=== PATIENT | male | born 1955 | race Caucasian/White ===

== ENCOUNTER 2025-05-10 15:37 | Outpatient (CLI) | payer MEDICARE, SELFPAY ==
--- NOTE | ~2025-05-10 | US_ITS ---
EXAMINATION: US carotid duplex BI DATE: 05/10/2025 16:36 INDICATION: Carotid bruit TECHNIQUE: Grayscale, color Doppler, and pulsed Doppler images of the cervical carotid arteries were obtained. The degree of vessel stenosis is placed in one of the following categories: normal, <50%, 50-69%, >=70% but less than near- occlusion, near-occlusion, or total occlusion. Note that percent stenosis relative to normal distal artery lumen diameter is indirectly measured from velocity measurements as described by Salvatore, et al. Radiology 2003; 229:340-346. Notes: Normal: Peak systolic velocity <125 centimeters/sec and no plaque <50%. Peak systolic velocity <125 (EDV <40; ICA/CCA PSV ratio <2.0; used these factors only a tandem lesions or low cardiac output or contralateral disease) 50-69 %: PSV 125-230 (EDV 40-100; ratio 2-4) >= 70% but less than near occlusion: PSV greater than 230 (EDV > 100; ratio> 4.0) Near Occlusion: PSV that is variable; markedly narrowed lumen Occlusion: Absent flow on color/spectral Doppler and no lumen on archer scale. COMPARISON: No prior studies for comparison. FINDINGS: RIGHT: The right common carotid artery (CCA) peak systolic velocity (PSV) is 96 cm/s. The right internal carotid artery (ICA) PSV is 85 cm/s. The right ICA end- diastolic velocity (EDV) is 25 cm/s. The right ICA/CCA PSV ratio is 1.0. The external carotid artery (ECA) PSV is 113 cm/s. There is antegrade flow in the right vertebral artery. LEFT: The left CCA PSV is 81 cm/s. The left ICA PSV is 93 cm/s. The left ICA EDV is 30 cm/s. The left ICA/CCA PSV ratio is 1.1. The ECA PSV is 116 cm/s. There is antegrade flow in the left vertebral artery. IMPRESSION: 1. Less than 50% stenosis in the right internal carotid artery by sonographic criteria. 2. Less than 50% stenosis in the left internal carotid artery by sonographic criteria. Reviewed, dictated and finalized at location I. CTOR LEARNING IMPRESSION: 1. Less than 50% stenosis in the right internal carotid artery by sonographic catracho prather. 2. Less than 50% stenosis in the left internal carotid artery by sonographic christopher higgins.
--- OUTSIDE RECORDS SUMMARY | 2025-05-10 15:54 | XMS_ITS | Clinical Summary ---
Author Organization [facility] Address [address] [place] [address] Care Team Providers Care Manual Arts Teacher Name Role Phone Asad Scherer MD [facility] Source Comments [facility],non-owned Affiliates and Associated Physician Practices is amultiple site organization consisting of ambulatory clinics and hospital sitesin [place], [place], [place] and [place]. This disclosure is being madepursuant to the Care Everywhere program and may not contain all information available regarding this patient. Last updated 18.[facility] Allergies No known active allergies Medications * Be aware that medications may not be up to date on this document. Alwaysverify current medications with the patient. lisinopril (Prinivil; Zestril) 40 MG tablet Take 1 (one) tablet by mouth once daily 100 tablet 2 06/22/2022 Active rosuvastatin (Crestor) 20 MG tablet Take 1 (one) tablet by mouth once daily 100 tablet 3 06/22/2022 Active cloNIDine (Catapres) 0.1 MG tablet Take 1 (one) tablet by mouth at bedtime 90 tablet 09/27/2022 Active amLODIPine (Norvasc) 10 MG tablet TAKE 1 TABLET BY MOUTH ONCE DAILY 100 tablet 02/25/2023 Active Active Problems Problem Noted Date Diagnosed Date ED (erectile dysfunction) 06/15/2010 Essential hypertension, benign 12/05/2009 Malaise and fatigue 07/03/2009 Hypercholesterolemia 08/05/2008 Hyperlipidemia 08/05/2008 Screening for condition 08/05/2008 Overview (03/06/2015): Adult Abstraction Problem List Screening Colonoscopy: Result: Not avail in chart Date: PSA: Result: Not avail in chart Date: 07-25-2007 0.7 Resolved Problems Problem Noted Date Diagnosed Date Resolved Date Hypertension 08/05/2008 07/02/2009 Immunizations Immunization Administration Dates Next Due INFLUENZA VACCINE, ADJUVANTE D, QUADR. (FLUAD QUADRIVALENT; 65Y+) (AIIV4) 06/01/2022,04/27/2021 INFLUENZA VACCINE, HIGH-DOSE , QUADR. (FLUZONE HIGH-DOSE QUADRIVALENT; 65Y+), 0.7 ML (HD-IIV4) 04/02/2020 PNEUMOCOCCAL PCV20 CONJ VAC IM 06/01/2022 PNEUMOCOCCAL PPSV23 04/02/2020 TDAP (7yrs+) 01/06/2016 Family History Medical History Relation Name Comments Cancer Father Cancer Mother Relation Name Status Comments Father CANCER Mother CANCER Social History Tobacco Use Types Packs/Day Years Used Date Smoking Tobacco: Never Smokeless Tobacco: Never Tobacco Cessation:Counseling Given: Not Answered Alcohol Use Standard Drinks/Week Comments Yes 0 (1 standard drink = 0.6 oz pur e alcohol) Beer PHQ-2 Answer Date Recorded PHQ2 TOTAL SCORE 0 11/24/2021 Sex and Gender Information Value Date Recorded Sex Assigned at Not on file Legal Sex Male 1:33 PM HEALTHCARE ANALYST Gender Identity Not on file Sexual Orientation Not on file 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 Not on file Not on file Last Filed Vital Signs Vital Sign Reading Time Taken Comments Blood Pressure 164/88 06/01/2022 10:34 AM HEALTHCARE ANALYST Pulse 64 06/01/2022 10:34 AM HEALTHCARE ANALYST Temperature 36.8 C (98.2 F) 06/01/2022 10:34 AM HEALTHCARE ANALYST Respiratory Rate 14 06/01/2022 10:34 AM HEALTHCARE ANALYST Oxygen Saturation 99% 06/01/2022 10:34 AM HEALTHCARE ANALYST Inhaled Oxygen Concentration - - Weight 107 kg (236 lb) 06/01/2022 10:34 AM HEALTHCARE ANALYST Height 185.4 cm (6' 0.99) 06/01/2022 10:[address] Body Mass Index 31.14 06/01/2022 10:34 AM HEALTHCARE ANALYST Plan of Treatment Health Maintenance Due Date Last Done Comments COLOGUARD (AGES 45-75) - COLON CA SCREENING 1955 CT COLONOGRAPHY - COLON CA SCREENING 1955 FIT - COLON CA SCREENING 1955 FLEX SIG - COLON CA SCREENING 1955 Respiratory Syncytial Virus (RSV) Vaccine Pt: or over 60 yrs (1 - Risk 50-74 years 1-dose series) 2003 ZOSTER VACCINE (1 of 2) 2003 DEPRESSION SCREENING 06/06/2024 11/24/2021 MEDICARE AWV CALENDAR YEAR 2024 11/24/2021, 06/02/2021, 04/02/2020 COVID-19 VACCINE ( - season) 2025 04/27/2021, 08/24/2020, 08/03/2020 INFLUENZA VACCINE (#1) 2025 2, 04/27/2021, 04/02/2020 SCREENING FOR DIABETES 06/01/2025 2, 06/01/2022, 11/24/2021, Additional history exists DTAP/TDAP/TD VACCINES (2 - Td or Tdap) 01/05/2026 01/06/2016 COLON MONITORING 03/28/2028 03/28/2018, 03/28/2018 COLONOSCOPY - COLON CA SCREENING 03/28/2028 03/28/2018, 03/28/2018, 02/28/2004 (Previously completed) Colorectal Cancer Screening 03/28/2028 HEPATITIS C SCREENING Completed 05/20/2017 PNEUMOCOCCAL VACCINE 50+ Completed 06/01/2022, 03/07 HEPATITIS B VACCINE Aged Out No longe r eligible based on patient's age to complete this topic HIB VACCINE Aged Out No longer eligi ble based on patient's age to complete this topic HPV VACCINE Aged Out No longer eligi ble based on patient's age to complete this topic MENINGOCOCCAL (Group B) VACCINE SHARED DECISION-MAKING Aged Out No longer eligible based on patient's age to complete this topic MENINGOCOCCAL GROUPS A/C/Y/W VACCINE Aged Out No longer eligible based on patient's age to complete this topic Goals Goal Patient Goal Type Associated Problems Recent Progress Patient-Stated? Author Blood Pressure < 140/90 Blood Pressure 164/88( 022 10:34 AM HEALTHCARE ANALYST) Karuna Crooks MA Procedures Procedure Name Priority Date/Time Associated Diagnosis Comments HEMOGLOBIN A1C Routine 06/01/2022 11:27 AM HEALTHCARE ANALYST Essential hypertension, benign Mixed hyperlipidemia Hypercholesterolemi a Malaise and fatigue ENDOSCOPY, COLON, SCREENING Routine 03/28/2018 9:16 AM CDT HEPATITIS C AB W RFLX VERIFICATION 05/20/2017 8:54 AM HEALTHCARE ANALYST from Last 3 Months or Most Recently Relevant to Health Maintenance Results * HEMOGLOBIN A1C (06/01/2022 11:27 AM HEALTHCARE ANALYST) Hemoglobin A1c 5.3 <5.7 % [facility] ACCOUNT BILL Comment: AVERAGE GLUCOSE MG/DL BLOOD 105 mg/dL HbA1c Interpretation: Normal: < 5.7% Pre-diabetes: 5.7-6.4% Diabetes: Equal to or greater than 6.5% Test results diagnostic of diabetes should be repeated for c onfirmation. Treatment target values recommended by ADA and other clinica l organizations should be used to evaluate metabolic control in patients. This test should not replace glucose testing for patients wi th Type 1 diabetes, pediatric patients, or women. Falsely low HbA The [place] Certified Registered Nurse Practitioner assay for the measurement of HbA1c is a National Glycohemoglobin Standardization Program (NGSP) certified method. FASTING Blood BLOOD SPECIMEN / Unknown 06/01/2022 11:27 AM HEALTHCARE ANALYST 06/01/2022 Narrative Resulting Agency Comment Lab Testing performed at: [facility] [address] [place] [phone] us Shawn Collins DO LAB - CHEMISTRY ORDERABL ES Final Result [facility] ACCOUNT BILL [address] [place] [address] * ENDOSCOPY, COLON, SCREENING (03/28/2018 9:16 AM CDT) Report Endoscopy POC _ Patient Name: Jonas Ahumada Procedure Date: 03/28/2018 9:16 AM Date of : 1955 Admit Type: Outpatient Age: 62 Gender: Male Attending MD: Vishnu Bates DO _ Procedure: Colonoscopy Indications: Screening for colorectal malignant neoplasm, Last colonoscopy: 2003 Providers: Vishnu Bates DO (Doctor) Referring MD: Shawn Collins DO (Referring MD) Medicines: See the Anesthesia note for documentation of the administered medications Complications: No immediate complications. _ Procedure: Pre-Anesthesia Assessment: - ASA Grade Assessment: II - A patient with mild systemic disease. After I obtained informed consent, the scope was passed under direct vision. Throughout the procedure, the patient's blood pressure, pulse, and oxygen saturations were monitored continuously. The Colonoscope was introduced through the anus and advanced to the cecum, identified by the appendiceal orifice, IC valve and transillumination . The colonoscopy was performed without difficulty. The patient tolerated the procedure well. The quality of the bowel preparation was good. Findings: The perianal and digital rectal examinations were normal. Non-bleeding internal hemorrhoids were found during retroflexion. The hemorrhoids were small. The exam was otherwise without abnormality. _ Impression: - Non-bleeding internal hemorrhoids. - The examination was otherwise normal. - No specimens collected. Recommendation: - Discharge patient to home. - Await pathology results. - Return to primary care physician as previously scheduled. - The findings and recommendations were discussed with the patient. - Repeat colonoscopy in 10 years for surveillance. Procedure Code(s): --- Professional --- 85903, Colonoscopy, flexible; diagnostic, including collection of specimen(s) by brushing or washing, when performed (separate procedure) --- Technical --- 13810, Colonoscopy, flexible; diagnostic, including collection of specimen(s) by brushing or washing, when performed (separate procedure) Diagnosis Code(s): --- Professional --- Z12.11, Encounter for screening for malignant neoplasm of colon K64.8, Other hemorrhoids --- Technical --- Z12.11, Encounter for screening for malignant neoplasm of colon K64.8, Other hemorrhoids CPT copyright 2015 [employer]. All rights reserved. The codes documented in this report are preliminary and upon launch check out review may be revised to meet current compliance requirements. ___ Vishnu Bates DO 03/28/2018 10:15:59 AM This report has been signed electronically. Number of Addenda: 0 Note Initiated On: 03/28/2018 9:16 AM [facility] ENDOSCOPY 03/28/2018 9:16 AM CDT us Vishnu Bates DO GI PROCEDURE ORDERABLES Ed ited Result - Final [facility] [place] [address] * HEPATITIS C AB W RFLX VERIFICATION (05/20/2017 8:54 AM HEALTHCARE ANALYST) Hepatitis C Antibody 0.1 0.0 - 0.9 s/co ratio [facility] ACCOUNT BILL 05/20/2017 8:54 AM HEALTHCARE ANALYST 05/20/2017 Narrative Resulting Agency Comment [facility] [address] [facility] [phone] Shawn Collins DO LAB - CHEMISTRY ORDERABL ES Final Result [facility] ACCOUNT BILL [address] [place] [address] from Last 3 Months or Most Recently Relevant to Health Maintenance Insurance [facility] MANAGED MEDICARE ADV Care Teams Manual Arts Teacher Relationship Specialty Start Date End Date Asad Scherer MD Orthopedic Surgery 10/03/17
--- OUTSIDE RECORDS SUMMARY | 2025-05-10 15:55 | XMS_ITS | Encounter Summary ---
Author Organization [facility] Health Address [facility] [place] [address] Care Team Providers Care Disc Pad Plate Filler Name Role Phone Shawn Collins DO Primary Care Provider + Asad Scherer MD Unavailable Shawn Collins DO Unavailable [phone] Encounter Details Date Type Department Care Team (Late st Contact Info) Description 09/13/2014 [facility] Visit EXTERNAL [facility] DEPT Shawn Collins DO [address] [place] [address] Social History Tobacco Use Types Packs/Day Years Used Date Smoking Tobacco: Never Smokeless Tobacco: Never Alcohol Use Standard Drinks/Week Comments Yes 0 (1 standard drink = 0.6 oz pur e alcohol) Beer Sex and Gender Information Value Date Recorded Sex Assigned at Not on file Legal Sex Male 1:33 PM X RAY EQUIPMENT SERVICER Gender Identity Not on file Sexual Orientation Not on file 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 Author Blood Pressure < 140/90 Blood Pressure 164/88( 022 10:34 AM X RAY EQUIPMENT SERVICER) No Karuna Stevenson MA documented as of this encounter Visit Diagnoses Not on filedocumented in this encounter Care Teams Disc Pad Plate Filler Relationship Specialty Start Date End Date Shawn Collins DO PCP - General 11/09/11 12/30/22 Shawn Collins DO [address] [place] [address] PCP - Attributed-[facility] 07/14/18 Asad Scherer MD Orthopedic Surgery 10/03/17 documented as of this encounter
--- OUTSIDE RECORDS SUMMARY | 2025-05-10 15:55 | XMS_ITS | Encounter Summary ---
Author Organization [facility] Health Address [facility] [place] [address] Care Team Providers Care Civil Attorney Name Role Phone Shawn Collins DO Primary Care Provider + Asad Scherer MD Unavailable Shawn Collins DO Unavailable [phone] Encounter Details Date Type Department Care Team (Late st Contact Info) Description 08/07/2013 [facility] Shawn Collins DO [address] [place] [address] Social History Tobacco Use Types Packs/Day Years Used Date Smoking Tobacco: Never Smokeless Tobacco: Never Alcohol Use Standard Drinks/Week Comments Yes 0 (1 standard drink = 0.6 oz pur e alcohol) Beer Sex and Gender Information Value Date Recorded Sex Assigned at Not on file Legal Sex Male 1:33 PM [facility] ATTENDANT Gender Identity Not on file Sexual Orientation Not on file 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
--- OUTSIDE RECORDS SUMMARY | 2025-05-10 15:55 | XMS_ITS | Encounter Summary ---
Author Organization [facility] Address [facility] [facility] [place] [address] Care Team Providers Care Clinical Educator Name Role Phone Asad Scherer MD Unavailable Encounter Details Date Type Department Care Team (Late st Contact Info) Description 09/20/2024 Lab Requisition [facility] - DermPath Lab [address] [place] [phone] Nii Cheney MD [facility] DERMATOLOGY [address] [place] [phone] Basal cell carcinoma of skin of left upper limb, including shoulder Social History Tobacco Use Types Packs/Day Years Used Date Smoking Tobacco: Never Smokeless Tobacco: Never Alcohol Use Standard Drinks/Week Comments Yes 0 (1 standard drink = 0.6 oz pur e alcohol) Beer PHQ-2 Answer Date Recorded PHQ2 TOTAL SCORE 0 11/24/2021 Sex and Gender Information Value Date Recorded Sex Assigned at Not on file Legal Sex Male 1:33 PM PHYSICAL THERAPY MANAGER Gender Identity Not on file Sexual Orientation Not on file 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 Author Blood Pressure < 140/90 Blood Pressure 164/88( 022 10:34 AM PHYSICAL THERAPY MANAGER) No Karuna Stevenson MA documented as of this encounter Procedures Procedure Name Priority Date/Time Associated Diagnosis Comments DERMATOPATHOLOGY Routine 09/20/2024 3:33 AM CDT Basal cell carcinoma of skin of left upper limb, including shoulder documented in this encounter Results * DERMATOPATHOLOGY (09/20/2024 3:33 AM CDT) Case Report Dermatopathology Report Case: [id number] Authorizing Provider: Nii Cheney MD Collected: 09/20/2024 03:33 AM Ordering Location: [facility] - Received: 09/21/2024 01:58 PM DermPath Lab Pathologist: Alicia White MD Specimen: Skin, left shoulder 2:11 PM CDT DERMATOPATHOLOGY LABORATORY Final Diagnosis Specimen A. SKIN, left shoulder: BASAL CELL CARCINOMA (C44.619) NOT PRESENT AT MARGIN DERMAL SCAR (L90.5) 2:11 PM CDT DERMATOPATHOLOGY LABORATORY at 1411 CDT Clinical History BCC Check margins/prior biopsy 2:11 PM CDT DERMATOPATHOLOGY LABORATORY Gross Description Specimen A: Received is one formalin filled container labeled with the patient's name and designated left shoulder. The specimen consists of a non-oriented ellipse of skin measuring [id number] mm. The epidermal surface is unremarkable. The margin is inked green. The 12 o'clock and 6 o'clock tips are submitted in cassette 1. The remainder of the ellipse is serially sectioned and submitted in cassette 2-3. Jar 0. 2:11 PM CDT DERMATOPATHOLOGY LABORATORY Microscopic Description Specimen A. SKIN, left shoulder: Within the dermis there are aggregates of basaloid cells with a high nuclear to cytoplasmic ratio and peripheral palisading. This lesion is not present at the margin of the specimen. There are fibroblasts and collagen bundles oriented parallel to the skin surface with elongated blood vessels, some of which are oriented perpendicular to the skin surface. 2:11 PM CDT DERMATOPATHOLOGY LABORATORY Disclaimer An external and internal positive and negative controls are appropriate for the histochemical, immunohistochemical and immunofluorescence stain(s) in this case (if any), except where stated explicitly. The performance characteristics of the stain(s) cited in this report were developed and its performance characteristic determined by the Dermatopathology Laboratory at [facility], directed by Dr. Pablo Aguilar. These tests need not be, and therefore are not, approved by the [place] Food and Drug Administration. The tests are used for clinical purposes. Billing Codes Specimen Charges Stain Charges 80479 1 5 2:11 PM CDT DERMATOPATHOLOGY LABORATORY Embedded Images 5 2:11 PM CDT DERMATOPATHOLOGY LABORATORY Pathology/Cytolo gy TISSUE SPECIMEN FROM SKIN / Unknown 09/20/2024 3:33 AM CDT 09/21/2024 1:58 PM CDT us Nii Cheney MD LAB - PATHOLOGY/CYTOLOGY DELANEYE ULICES Final Result DERMATOPATHOLOGY LABORATORY [facility] - Department of Dermatology [facility] Medicine [address] [place] [address], [address] [phone] documented in this encounter Visit Diagnoses Diagnosis Basal cell carcinoma of skin of left upper limb, including shoulder Basal cell carcinoma of skin of upper limb, including shoulder documented in this encounter Care Teams Clinical Educator Relationship Specialty Start Date End Date Asad Scherer MD Orthopedic Surgery 10/03/17 documented as of this encounter
--- OUTSIDE RECORDS SUMMARY | 2025-05-10 15:55 | XMS_ITS | Encounter Summary ---
Author Organization [facility] Address [facility] [place] [address] Care Team Providers Care Heating And Refrigeration Inspector Name Role Phone Asad Scherer MD Unavailable Encounter Details Date Type Department Care Team (Late st Contact Info) Description 06/14/2024 Lab Requisition [facility] - DermPath Lab [address] [place] [id number] Nii Cheney MD [facility] DERMATOLOGY [address] [place] [phone] Neoplasm of uncertain behavior of skin Social History Tobacco Use Types Packs/Day Years Used Date Smoking Tobacco: Never Smokeless Tobacco: Never Alcohol Use Standard Drinks/Week Comments Yes 0 (1 standard drink = 0.6 oz pur e alcohol) Beer PHQ-2 Answer Date Recorded PHQ2 TOTAL SCORE 0 11/24/2021 Sex and Gender Information Value Date Recorded Sex Assigned at Not on file Legal Sex Male 1:33 PM TEMPORARY ADMINISTRATIVE ASSISTANT Gender Identity Not on file Sexual Orientation Not on file 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 Author Blood Pressure < 140/90 Blood Pressure 164/88( 022 10:34 AM TEMPORARY ADMINISTRATIVE ASSISTANT) No Karuna Stevenson MA documented as of this encounter Procedures Procedure Name Priority Date/Time Associated Diagnosis Comments DERMATOPATHOLOGY Routine 06/14/2024 12:0 0 AM TEMPORARY ADMINISTRATIVE ASSISTANT Neoplasm of uncertain behavior of skin documented in this encounter Results * DERMATOPATHOLOGY (06/14/2024 12:00 AM TEMPORARY ADMINISTRATIVE ASSISTANT) Case Report Dermatopathology Report Case: [id number] Authorizing Provider: Nii Cheney MD Collected: 06/14/2024 12:00 AM Ordering Location: [facility] - Received: 06/15/2024 11:00 AM DermPath Lab Pathologist: Alicia White MD Specimens: A) - Skin, left upper arm B) - Skin, left calf C) - Skin, left shoulder 3:19 PM [facility] DERMATOPATHOLOGY LABORATORY Final Diagnosis Specimen A. SKIN, left upper arm: SQUAMOUS CELL CARCINOMA IN SITU, PRESENT AT THE BASE OF THE SPECIMEN (D04.62) (see microscopic description and comment) Specimen B. SKIN, left calf: SQUAMOUS CELL CARCINOMA IN SITU ARISING IN ASSOCIATION WITH AN IRRITATED AND INFLAMED SEBORRHEIC KERATOSIS (D04.72) (see microscopic description) Specimen C. SKIN, left shoulder: BASAL CELL CARCINOMA, NODULAR TYPE (C44.619) 3:19 PM [facility] DERMATOPATHOLOGY LABORATORY at 1519 TEMPORARY ADMINISTRATIVE ASSISTANT Clinical History A: SCC vs Verruca B: SCC in SITU C: BCC 3:19 PM TEMPORARY ADMINISTRATIVE ASSISTANT DERMATOPATHOLOGY LABORATORY Gross Description Specimen A: Received is one formalin filled container labeled with the patient's name and designated left upper arm. The specimen consists of a shave biopsy measuring 9x8x5 mm. Jar 0. Specimen B: Received is one formalin filled container labeled with the patient's name and designated left calf. The specimen consists of a shave biopsy measuring 7x6x1 mm. Jar 0. Specimen C: Received is one formalin filled container labeled with the patient's name and designated left shoulder. The specimen consists of a shave biopsy measuring 38u91o4 mm. Jar 0. 3:19 PM [facility] DERMATOPATHOLOGY LABORATORY Microscopic Description Specimen A. SKIN, left upper arm: The epidermis shows parakeratosis, full thickness disorderly maturation of keratinocytes, mitoses at different levels, and dyskeratotic cells. The lesion extends to the base of the biopsy. COMMENT: An invasive squamous cell carcinoma cannot be ruled out. Specimen B. SKIN, left calf: The epidermis shows parakeratosis, full thickness disorderly maturation of keratinocytes, and dyskeratotic cells. Sections show associated acanthosis, papillomatosis, hyperkeratosis, and squamous eddies. There is a lymphohistiocytic infiltrate within the papillary dermis. Additional deeper sections were obtained and reviewed. Specimen C. SKIN, left shoulder: Within the dermis there are aggregates of basaloid cells with a high nuclear to cytoplasmic ratio and peripheral palisading. 3:19 PM [facility] DERMATOPATHOLOGY LABORATORY Disclaimer An external and internal positive and negative controls are appropriate for the histochemical, immunohistochemical and immunofluorescence stain(s) in this case (if any), except where stated explicitly. The performance characteristics of the stain(s) cited in this report were developed and its performance characteristic determined by the Dermatopathology Laboratory at [facility], directed by Dr. Pablo Aguilar. These tests need not be, and therefore are not, approved by the [place] Food and Drug Administration. The tests are used for clinical purposes. Billing Codes Specimen Charges Stain Charges 74274 [id number] 42310 1 1 1 5 3:19 PM TEMPORARY ADMINISTRATIVE ASSISTANT DERMATOPATHOLOGY LABORATORY Embedded Images 3:19 PM [facility] DERMATOPATHOLOGY LABORATORY Pathology/Cytology TISSUE SPECIMEN FROM SKIN / Unknown 06/14/2024 06/15/2024 11:00 AM TEMPORARY ADMINISTRATIVE ASSISTANT Miscellaneous samples (specimen) TISSUE SPECIMEN FROM SKIN / Unknown 06/14/2024 06/15/2024 11:00 AM TEMPORARY ADMINISTRATIVE ASSISTANT Miscellaneous samples (specimen) TISSUE SPECIMEN FROM SKIN / Unknown 06/14/2024 06/15/2024 11:00 AM TEMPORARY ADMINISTRATIVE ASSISTANT us Nii Cheney MD LAB - PATHOLOGY/CYTOLOGY LINDA ELENA Final Result DERMATOPATHOLOGY LABORATORY [facility] - Department of Dermatology [address] [place] [address], [facility] [phone] documented in this encounter Visit Diagnoses Diagnosis Neoplasm of uncertain behavior of skin documented in this encounter Care Teams Heating And Refrigeration Inspector Relationship Specialty Start Date End Date Asad Scherer MD Orthopedic Surgery 10/03/17 documented as of this encounter
--- OUTSIDE RECORDS SUMMARY | 2025-05-10 15:55 | XMS_ITS | Encounter Summary ---
Author Organization [facility] Health Address [facility] [facility] [place] [address] Care Team Providers Care Seed Potato Cutter Name Role Phone Shawn Collins DO Primary Care Provider + Asad Scherer MD Unavailable Shawn Collins DO Unavailable [phone] Encounter Details Date Type Department Care Team (Late st Contact Info) Description 10/10/2014 [facility] Shawn Collins DO [address] [place] [address] Social History Tobacco Use Types Packs/Day Years Used Date Smoking Tobacco: Never Smokeless Tobacco: Never Alcohol Use Standard Drinks/Week Comments Yes 0 (1 standard drink = 0.6 oz pur e alcohol) Beer Sex and Gender Information Value Date Recorded Sex Assigned at Not on file Legal 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 Author Blood Pressure < 140/90 Blood Pressure 164/88( 022 10:34 AM MANAGER IN HOME) No Karuna Stevenson MA documented as of this encounter Visit Diagnoses Not on filedocumented in this encounter Care Teams Seed Potato Cutter Relationship Specialty Start Date End Date Shawn Collins DO PCP - General 11/09/11 12/30/22 Shawn Collins DO [address] [place] [address] PCP - Attributed-[facility] 07/14/18 Asad Scherer MD Orthopedic Surgery 10/03/17 documented as of this encounter
--- OUTSIDE RECORDS SUMMARY | 2025-05-10 15:55 | XMS_ITS | Encounter Summary ---
Author Organization [facility] Health Address [address] [place] [address] Care Team Providers Care Arbor Press Operator Name Role Phone Shawn Collins DO Primary Care Provider + Asad Scherer MD Unavailable Shawn Collins DO Unavailable [phone] Encounter Details Date Type Department Care Team (Late st Contact Info) Description 06/23/2012 [facility] Shawn Collins DO [address] [place] [address] Social History Tobacco Use Types Packs/Day Years Used Date Smoking Tobacco: Never Smokeless Tobacco: Never Alcohol Use Standard Drinks/Week Comments Yes 0 (1 standard drink = 0.6 oz pur e alcohol) Beer Sex and Gender Information Value Date Recorded Sex Assigned at Not on file 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 Gender Identity Not on file Sexual Orientation Not on file 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
== END 2025-05-10 15:38 | disposition home or self-care (01) ==
PROVIDERS: PCP Family Medicine; Visit Provider Family Medicine
DX: R09.89 Other specified symptoms and signs involving the circulatory and respiratory systems (principal); I65.23 Occlusion and stenosis of bilateral carotid arteries
CPT/HCPCS: 93880